=== PATIENT | female | born 1995 | race Two or more races ===

== ENCOUNTER 2017-01-10 19:51 | Emergency (ER) | payer OTHER ==
[~2017-01-10] VITALS: Ht 152.4 cm; Wt 52.3 kg
[2017-01-10] MEDS ORDERED: NS 1,000 ML IV ONE (22:15)
[2017-01-10 22:29] VITALS: BP 141/90
[2017-01-10 22:58] LABS: BASO % 0.3 % (0.0-1.0); EOS % 0.8 % (0.0-3.0); LARGE UNSTAINED CELL # 0.1 K/mm3 (0.0-0.4); LARGE UNSTAINED CELL % 1.9 % (0.0-4.0); LYMPH % 28.4 % (24.0-44.0); MEAN CORPUSCULAR HGB CONC 34.8 g/dl (32.0-36.5); MEAN CORPUSCULAR VOLUME 92.1 fl (80.0-96.0); MONO # 0.3 K/mm3 (0.0-0.8); MONO % 3.8 % (0.0-5.0); NEUTROPHILS # 4.5 K/mm3 (1.8-7.7); NEUTROPHILS % 64.8 % (36.0-66.0); PLATELET COUNT, AUTOMATED 206 k/mm3 (150-450); RED CELL DISTRIBUTION WIDTH 12.3 % (11.5-14.5); WHITE BLOOD COUNT 6.9 K/mm3 (4.0-10.0)
[2017-01-10 23:10] LABS: ALBUMIN 4.7 GM/DL (3.2-5.2); ALBUMIN/GLOBULIN RATIO 1.21 (1.00-1.93); ALKALINE PHOSPHATASE 54 U/L (45-117); ALT/SGPT 21 U/L (12-78); ANION GAP 8 MEQ/L (8-16); AST/SGOT 12 U/L (15-37); BILIRUBIN,DIRECT 0.2 MG/DL (0.0-0.2); BILIRUBIN,TOTAL 0.5 MG/DL (0.2-1.0); BLOOD UREA NITROGEN 10 MG/DL (7-18); CALCIUM LEVEL 8.8 MG/DL (8.5-10.1); CARBON DIOXIDE LEVEL 27 MEQ/L (21-32); CHLORIDE LEVEL 107 MEQ/L (98-107); CREATININE FOR GFR 0.59 MG/DL (0.55-1.02); GLOMERULAR FILTRATION RATE > 60.0 (>60); GLUCOSE, FASTING 76 MG/DL (70-105); POTASSIUM SERUM 3.6 MEQ/L (3.5-5.1); SODIUM LEVEL 142 MEQ/L (136-145); TOTAL PROTEIN 8.6 GM/DL (6.4-8.2)
[2017-01-10] MEDS ORDERED: METOCLOPRAMIDE INJ 10MG/2ML VIAL (J2765) IV ONE (23:30)
[2017-01-10] MEDS ORDERED: diphenhydrAMINE INJ 50MG/ML VIAL (J1200) IV ONE (23:30)
[2017-01-10] MEDS ORDERED: KETOROLAC 30 MG/ML VIAL (J1885) IV ONE (23:30)
[2017-01-11] MEDS ORDERED: NS 1,000 ML IV ONE (00:15)
--- NOTE | 2017-01-11 06:14 | ECGEPIP ---
Stationary ECG Study [facility] - ED Test Date: 2017-01-10 Pat Name: ROSARIO LEVY Department: Room: - Gender: F [employer]: : 1995 Requested By: HILLARY CULVER Order Number: [id number] Reading MD: Toby Wesley Measurements Intervals [place] Rate: 69 P: 62 MN: 165 QRS: 81 QRSD: 90 T: 56 QT: 370 QTc: 398 Interpretive Statements SINUS RHYTHM Electronically Signed On 01-11-2017 6:13:59 EDT by Toby Wesley
== END 2017-01-11 01:55 | disposition home or self-care (01) ==
LOC: M ED 19:51
DX: R11.10 Vomiting, unspecified (principal); R51 Headache; R19.7 Diarrhea, unspecified
CPT/HCPCS: 80048; 80076; 81025; 83690; 85025; 93005; 96374; 96375; 99284; J1200; J1885; J2765